=== PATIENT | female | born 1980 | race Hispanic/Latino ===

== ENCOUNTER 2022-07-08 14:41 | Emergency (ER) | payer OTHER ==
[~2022-07-08] VITALS: Ht 149.9 cm; Wt 74.8 kg
[2022-07-08] MEDS ORDERED: IBUPROFEN600 MG PO (15:01)
[2022-07-08] MEDS ORDERED: METHOCARBAMOL750 MG PO (15:01)
== END 2022-07-08 15:08 | disposition home or self-care (01) ==
LOC: ER 14:49
DX: S29.012A Strain of muscle and tendon of back wall of thorax, initial encounter (principal); X50.0XXA Overexertion from strenuous movement or load, initial encounter; Y99.0 Civilian activity done for income or pay
CPT/HCPCS: 99282